=== PATIENT | male | born 1975 | race Caucasian/White ===

== ENCOUNTER 2017-08-30 23:02 | Inpatient (IN) ==
[2017-08-30] MEDS ORDERED: SODIUM CHLORIDE 0.9% 1,000 ML IV STA (23:22)
[2017-08-30] MEDS ORDERED: PIPERACILLIN/TAZOBACTAM 3,375 MG in SODIUM CHLORIDE 0.9% 100 ML IV STA (23:28)
[2017-08-30] MEDS ORDERED: VANCOMYCIN INJ 1,500 MG in SODIUM CHLORIDE 0.9% 500 ML IV STA (23:29)
[2017-08-30 23:51] LABS: Basophils # 0.1 10*3/uL (0.0-0.2); Basophils % 0.7 % (0.0-0.8); Eosinophils # 0.3 10*3/uL (0.0-0.87); Eosinophils % 2.5 % (0.00-10.9); Hematocrit 37.7 VOL% (42.0-52.0); Hemoglobin 12.9 GM/DL (14.0-18.0); Immature Granulocytes % 0.3 %; Immature Granulocytes Absolute 0.04 #; Lymphocytes # 3.1 10*3/uL (1.4-4.0); Lymphocytes % 26.3 % (21.2-54.2); Mean Corpuscular HGB Conc 34.2 GM/DL (32-36); Mean Corpuscular Hemoglobin 29 PG (27-34); Mean Corpuscular Volume 83.4 FL (87-102); Mean Platelet Volume 11.5 FL (9.6-12.0); Monocytes # 0.7 10*3/uL (0.11-0.8); Monocytes % 5.8 % (1.7-12.7); Neutrophils # 7.6 10*3/uL (1.4-7.4); Neutrophils % 64.4 % (38.7-73.9); Platelet Count 213 T/CUMM (130-400); Red Blood Count 4.52 MC/CUMM (3.8-5.5); Red Cell Distribution Width 15.2 % (9.3-17.3); White Blood Count 11.7 T/CUMM (4-12)
[2017-08-31] MEDS ORDERED: PIPERACILLIN/TAZOBACTAM 3,375 MG VIAL IV ONE (00:08)
[2017-08-31] MEDS ORDERED: SODIUM CHLORIDE 0.9% 100 ML IV ONE (00:11)
[2017-08-31 00:13] LABS: Alanine Aminotransferase 15 U/L (16-61); Albumin 3.2 G/DL (3.4-5.0); Alkaline Phosphatase 53 U/L (45-117); Aspartate Amino Transferase 10 U/L (0-37); Bilirubin,Total < 0.39 MG/DL (0.2-1.0); Calcium 8.5 MG/DL (8.5-10.1); Total Protein 7.6 G/DL (6.4-8.3)
[2017-08-31 00:14] LABS: Blood Urea Nitrogen 23 MG/DL (7-18); Glucose 232 MG/DL (74-106); Lactic Acid 0.9 MMOL/L (0.4-2.0); Potassium 3.3 MMOL/L (3.5-5.1); Sodium 136 MMOL/L (136-145)
[2017-08-31 00:54] LABS: Sedimentation Rate-Westergren 71 MM/HR (0-15)
[2017-08-31] MEDS ORDERED: DEXTROSE 50% 25 GM/50 ML VIAL IV PRN (05:12)
[2017-08-31] MEDS ORDERED: GLUCAGON 1 MG VIAL IM PRN (05:12)
[2017-08-31] MEDS: INSULIN LISPRO 100 UNIT/ML SUBCUT SCH ×4 (06:47→23:58)
[2017-08-31] MEDS: CLINDAMYCIN 300 MG CAPSULE PO SCH ×3 (06:47→21:43)
[2017-08-31 07:11] LABS: Calcium 8.7 MG/DL (8.5-10.1); Osmolality,Calculated 287.1 MOS/KG (273-304); Potassium 3.2 MMOL/L (3.5-5.1)
[2017-08-31] MEDS: ACETAMINOPHEN 325 MG TABLET PO PRN (10:54)
[2017-08-31 11:27] LABS: Apearance,Urine CLEAR (Clear); Bilirubin,Urine Negative (Negative); Blood, Urine Negative (Negative); Glucose,Urine (UA) >=500 mg/dL (Negative); Ketones,Urine 5 mg/dL (Negative); Mucus,Urine Occasional /LPF (Occasional); Nitrite,Urine Negative (Negative); Protein,Urine 100 MG/DL; RBC,Urine 1 /HPF (0-4); Squamous Epithelial Cell,Urine Occasional /HPF (0-10); Urine Color Yellow (Yellow); Urine Specific Gravity 1.023 (1.001-1.035); Urine Urobilinogen < 2.0 EU/DL (0.2-1.0); WBC,Urine 1 /HPF (0-6)
[2017-08-31] MEDS: QUEtiapine 100 MG TABLET PO SCH (20:42)
[2017-08-31] MEDS: GABAPENTIN 600 MG TABLET PO SCH (20:42)
[2017-08-31] MEDS ORDERED: INSULIN GLARGINE 100 UNIT/ML SUBCUT SCH (21:00)
[2017-09-01 04:25] LABS: Calcium 8.7 MG/DL (8.5-10.1); Osmolality,Calculated 286.1 MOS/KG (273-304); Potassium 3.2 MMOL/L (3.5-5.1)
[2017-09-01] MEDS: CLINDAMYCIN 300 MG CAPSULE PO SCH (05:43)
[2017-09-01] MEDS: INSULIN LISPRO 100 UNIT/ML SUBCUT SCH ×3 (05:44→17:41)
[2017-09-01] MEDS: POTASSIUM CHLORIDE 20 MEQ TABLET PO SCH (08:25)
[2017-09-01] MEDS: metFORMIN 500 MG TABLET PO SCH ×2 (08:25→17:41)
[2017-09-01] MEDS: buPROPion SR 150 MG TABLET PO SCH (08:25)
[2017-09-01] MEDS: ESCITALOPRAM 10 MG TABLET PO SCH (08:25)
[2017-09-01] MEDS: GABAPENTIN 600 MG TABLET PO SCH ×3 (08:25→20:56)
[2017-09-01] MEDS: NICOTINE 21 MG/24 HR PATCH TRANSDERM SCH (08:26)
[2017-09-01] MEDS ORDERED: LISINOPRIL 10 MG TABLET PO SCH (09:00)
[2017-09-01] MEDS: VANCOMYCIN INJ 1,750 MG in SODIUM CHLORIDE 0.9% 500 ML IV SCH (10:15)
[2017-09-01] MEDS ORDERED: POTASSIUM CHLORIDE RIDER 10 MEQ in PREMIX 1 EACH IV PRN (10:18)
[2017-09-01] MEDS: sitaGLIPtin 25 MG TABLET PO SCH (11:49)
[2017-09-01] MEDS: POTASSIUM CHLORIDE 20 MEQ TABLET PO PRN ×5 (11:49→21:02)
[2017-09-01] MEDS ORDERED: INSULIN GLARGINE 100 UNIT/ML SUBCUT SCH (14:26)
[2017-09-01] MEDS: CARVEDILOL 12.5 MG TABLET PO SCH (16:25)
[2017-09-01] MEDS: QUEtiapine 100 MG TABLET PO SCH (20:56)
[2017-09-02] MEDS: INSULIN LISPRO 100 UNIT/ML SUBCUT SCH ×4 (00:30→18:07)
[2017-09-02] MEDS: CARVEDILOL 12.5 MG TABLET PO SCH ×3 (00:32→21:46)
[2017-09-02] MEDS: POTASSIUM CHLORIDE 20 MEQ TABLET PO PRN ×2 (00:35→02:16)
[2017-09-02 01:22] LABS: Albumin 2.7 G/DL (3.4-5.0); Bilirubin,Total 0.6 MG/DL (0.2-1.0); Calcium 9.2 MG/DL (8.5-10.1); Osmolality,Calculated 287.1 MOS/KG (273-304); Potassium 3.8 MMOL/L (3.5-5.1); Risk Ratio 6.97; Total Protein 7.4 G/DL (6.4-8.3)
[2017-09-02 01:25] LABS: Calcium 9.3 MG/DL (8.5-10.1); Osmolality,Calculated 287.1 MOS/KG (273-304); Potassium 3.8 MMOL/L (3.5-5.1)
[2017-09-02 01:27] LABS: Basophils # 0.1 10*3/uL (0.0-0.2); Basophils % 0.7 % (0.0-0.8); Eosinophils # 0.3 10*3/uL (0.0-0.87); Eosinophils % 2.7 % (0.00-10.9); Hemoglobin 12.4 GM/DL (14.0-18.0); Immature Granulocytes % 0.6 %; Immature Granulocytes Absolute 0.06 #; Lymphocytes # 2.9 10*3/uL (1.4-4.0); Lymphocytes % 27.4 % (21.2-54.2); Mean Corpuscular HGB Conc 32.6 GM/DL (32-36); Mean Corpuscular Hemoglobin 28 PG (27-34); Mean Platelet Volume 11.6 FL (9.6-12.0); Monocytes # 0.7 10*3/uL (0.11-0.8); Monocytes % 6.4 % (1.7-12.7); Neutrophils # 6.6 10*3/uL (1.4-7.4); Neutrophils % 62.2 % (38.7-73.9); Platelet Count 238 T/CUMM (130-400); Red Blood Count 4.47 MC/CUMM (3.8-5.5); Red Cell Distribution Width 15.4 % (9.3-17.3); White Blood Count 10.6 T/CUMM (4-12)
[2017-09-02] MEDS: VANCOMYCIN INJ 1,750 MG in SODIUM CHLORIDE 0.9% 500 ML IV SCH ×2 (02:32→15:27)
[2017-09-02] MEDS: metFORMIN 500 MG TABLET PO SCH ×2 (09:02→18:07)
[2017-09-02] MEDS: POTASSIUM CHLORIDE 20 MEQ TABLET PO SCH (09:02)
[2017-09-02] MEDS: GABAPENTIN 600 MG TABLET PO SCH ×3 (09:02→21:46)
[2017-09-02] MEDS: ESCITALOPRAM 10 MG TABLET PO SCH (09:02)
[2017-09-02] MEDS: sitaGLIPtin 25 MG TABLET PO SCH (09:02)
[2017-09-02] MEDS: LISINOPRIL 20 MG TABLET PO SCH (09:02)
[2017-09-02] MEDS: buPROPion SR 150 MG TABLET PO SCH (09:02)
[2017-09-02] MEDS: NICOTINE 21 MG/24 HR PATCH TRANSDERM SCH (09:04)
[2017-09-02] MEDS ORDERED: INSULIN GLARGINE 100 UNIT/ML SUBCUT SCH (10:43)
[2017-09-02] MEDS ORDERED: SKIN HEALING OINT (AQUAPHOR) 50 GM TUBE TOP PRN (19:34)
[2017-09-02] MEDS: QUEtiapine 100 MG TABLET PO SCH (21:46)
[2017-09-02] MEDS: ROSUVASTATIN 20 MG TABLET PO SCH (21:46)
[2017-09-03] MEDS: INSULIN LISPRO 100 UNIT/ML SUBCUT SCH ×5 (00:41→23:18)
[2017-09-03] MEDS: VANCOMYCIN INJ 1,750 MG in SODIUM CHLORIDE 0.9% 500 ML IV SCH (02:57)
[2017-09-03 05:50] LABS: Calcium 8.7 MG/DL (8.5-10.1); Osmolality,Calculated 286.3 MOS/KG (273-304); Potassium 3.7 MMOL/L (3.5-5.1)
[2017-09-03] MEDS: metFORMIN 500 MG TABLET PO SCH ×2 (09:00→21:07)
[2017-09-03] MEDS: LISINOPRIL 20 MG TABLET PO SCH (09:00)
[2017-09-03] MEDS: ACETAMINOPHEN 325 MG TABLET PO PRN (09:00)
[2017-09-03] MEDS: sitaGLIPtin 25 MG TABLET PO SCH (09:01)
[2017-09-03] MEDS: CARVEDILOL 12.5 MG TABLET PO SCH ×2 (09:02→21:07)
[2017-09-03] MEDS: GABAPENTIN 600 MG TABLET PO SCH ×3 (09:02→21:07)
[2017-09-03] MEDS: ESCITALOPRAM 10 MG TABLET PO SCH (09:02)
[2017-09-03] MEDS: POTASSIUM CHLORIDE 20 MEQ TABLET PO SCH (09:02)
[2017-09-03] MEDS: NICOTINE 21 MG/24 HR PATCH TRANSDERM SCH (09:03)
[2017-09-03] MEDS: buPROPion SR 150 MG TABLET PO SCH ×2 (09:49→21:07)
[2017-09-03] MEDS: QUEtiapine 100 MG TABLET PO SCH (21:07)
[2017-09-03] MEDS: ROSUVASTATIN 20 MG TABLET PO SCH (21:07)
[2017-09-03] MEDS: INSULIN GLARGINE 100 UNIT/ML SUBCUT SCH (23:18)
[2017-09-04 05:32] LABS: Basophils # 0.1 10*3/uL (0.0-0.2); Basophils % 0.6 % (0.0-0.8); Eosinophils # 0.3 10*3/uL (0.0-0.87); Eosinophils % 2.6 % (0.00-10.9); Hematocrit 37.6 VOL% (42.0-52.0); Hemoglobin 12.3 GM/DL (14.0-18.0); Immature Granulocytes % 0.2 %; Immature Granulocytes Absolute 0.02 #; Lymphocytes # 2.9 10*3/uL (1.4-4.0); Lymphocytes % 29.9 % (21.2-54.2); Mean Corpuscular HGB Conc 32.7 GM/DL (32-36); Mean Corpuscular Hemoglobin 28 PG (27-34); Mean Platelet Volume 11.5 FL (9.6-12.0); Monocytes # 0.8 10*3/uL (0.11-0.8); Monocytes % 8.2 % (1.7-12.7); Neutrophils # 5.7 10*3/uL (1.4-7.4); Neutrophils % 58.5 % (38.7-73.9); Platelet Count 219 T/CUMM (130-400); Red Blood Count 4.37 MC/CUMM (3.8-5.5); Red Cell Distribution Width 14.9 % (9.3-17.3); White Blood Count 9.7 T/CUMM (4-12)
[2017-09-04 05:46] LABS: Calcium 8.9 MG/DL (8.5-10.1); Calcium 9.1 MG/DL (8.5-10.1); Osmolality,Calculated 289.1 MOS/KG (273-304); Potassium 3.9 MMOL/L (3.5-5.1)
[2017-09-04] MEDS: INSULIN LISPRO 100 UNIT/ML SUBCUT SCH ×4 (06:13→23:06)
[2017-09-04] MEDS ORDERED: MAGNESIUM SULF RIDER 2 GM in PREMIX 1 EACH IV ONE (08:15)
[2017-09-04] MEDS: metFORMIN 500 MG TABLET PO SCH ×2 (11:50→16:35)
[2017-09-04] MEDS: sitaGLIPtin 25 MG TABLET PO SCH (11:51)
[2017-09-04] MEDS: GABAPENTIN 600 MG TABLET PO SCH ×3 (11:51→20:52)
[2017-09-04] MEDS: LISINOPRIL 20 MG TABLET PO SCH (11:51)
[2017-09-04] MEDS: POTASSIUM CHLORIDE 20 MEQ TABLET PO SCH (11:52)
[2017-09-04] MEDS: ESCITALOPRAM 10 MG TABLET PO SCH (11:52)
[2017-09-04] MEDS: CARVEDILOL 12.5 MG TABLET PO SCH ×2 (11:52→20:52)
[2017-09-04] MEDS: buPROPion SR 150 MG TABLET PO SCH ×2 (11:53→20:52)
[2017-09-04] MEDS: NICOTINE 21 MG/24 HR PATCH TRANSDERM SCH (11:53)
[2017-09-04] MEDS: ROSUVASTATIN 20 MG TABLET PO SCH (20:52)
[2017-09-04] MEDS: QUEtiapine 100 MG TABLET PO SCH (20:52)
[2017-09-04] MEDS: INSULIN GLARGINE 100 UNIT/ML SUBCUT SCH (20:53)
[2017-09-05 06:34] LABS: Osmolality,Calculated 287.3 MOS/KG (273-304); Potassium 4.1 MMOL/L (3.5-5.1)
[2017-09-05] MEDS: INSULIN LISPRO 100 UNIT/ML SUBCUT SCH (07:19)
[2017-09-05 09:02] VITALS: BP 131/62
== END 2017-09-05 09:40 | disposition home health service (06) | DRG 638 ==
LOC: EDBD 23:02 → N.EDINP 23:02 → N.ED 23:02 → N.3E 08-31 04:07
PROVIDERS: ADMIT Hospitalist; ATTEND Hospitalist